=== PATIENT | male | born 1995 | race Caucasian/White ===

== ENCOUNTER 2019-01-09 08:16 | Inpatient (IN) ==
[2019-01-09] MEDS ORDERED: OXYCODONE Oral CONC 10 MG/0.5 ML ORAL.SYG SL PRN (09:24)
[2019-01-09] MEDS ORDERED: Ondansetron 4 MG/2 ML VIAL IVP PRN (09:24)
[2019-01-09] MEDS ORDERED: *HR* Promethazine 25 MG/ML VIAL IVP PRN (09:24)
[2019-01-09 09:50] LABS: Basophils % 0.3 %; Eosinophils # 0.4 K/mcL (0.0-0.6); Eosinophils % 5.1 %; Immature Granulocytes % 0.4 % (0-4); Lymphocytes # 1.4 K/mcL (0.6-4.6); Lymphocytes % 19.8 %; Mean Corpuscular HGB Conc 32.6 g/dL (31.6-35.5); Mean Corpuscular Hemoglobin 27.6 pg (28.0-33.3); Mean Corpuscular Volume 84.6 fL (83.0-100.0); Mean Platelet Volume 10.2 fL (9.4-12.4); Monocytes # 0.6 K/mcL (0.0-1.3); Monocytes % 8.7 %; Neutrophils # 4.5 K/mcL (1.6-8.9); Platelet Count 231 K/mcL (140-400); Red Blood Count 5.08 M/mcL (4.19-5.50); Red Cell Distribution Width 12.8 % (11.5-14.5); Segmented Neutrophils % 65.7 %
[2019-01-09 09:57] LABS: INR 1.1; Prothrombin Time 12.5 Seconds (9.4-12.1)
--- NOTE | 2019-01-09 10:32 | Acute Care Surgery H&P ---
<Jennifer Aldridge L - Last Filed: 01/09/19 10:26> Date of Encounter: 01/09/19 Time of Encounter: 10:27 Assessment and Plan (1) Choledocholithiasis Current Visit: Yes Status: Acute The assessment and plan as outlined above was discussed with the patient and/or family members who expressed understanding and agreement. All questions were answered. Patient recently had a cholecystectomy at [facility] by Dr. Jimenez. Per review of office note he had been having pain for approximately the last month. Upper endoscopy he was found to have a small ulcer. He then presented to [facility] and was noted to have pancreatitis. In MRCP demonstrated distal filling defect in the common bile duct. We will admit him to the hospital for choledocholithiasis and acute pancreatitis. We have consulted gastroenterology for an ERCP on 01/10/2019. See hard chart for complete history and physical. Plan: NPO Labs IVF Supportive care and Discomfort management EPCDs IS Smoking cessation GI consult for ERCP History of Present Illness Chief complaint: Epigastric pain HPI: Mr. Gaming is a 23 year old male Past Med Surg Social Fam HX - Past Surgical History Surgical History: cholecystectomy, tonsilectomy - Social History Smoking Status: Current every day smoker Packs per day: 0.5 Alcohol use: none Drug use: none - Family History Mother History Unknown: Yes Medications and Allergies Allergy/AdvReac Type Severity Reaction Status Date / Time Amoxicillin [From Augmentin] AdvReac Hives Verified 01/09/19 09:09 clavulanic acid AdvReac Hives Verified 01/09/19 09:09 [From Augmentin] Review of Systems All systems PM: The remainder of the systems were reviewed and are negative General Surgery Exam Initial Vital Signs Temp Pulse Resp BP Pulse Ox 97.8 F 61 17 127/76 98 01/09/19 08:57 01/09/19 08:57 01/09/19 08:57 01/09/19 08:57 01/09/19 08:57 Results - Labs 01/09/19 09:38 Abnormal lab results MCH 27.6 pg (28.0-33.3) L 01/09/19 09:38 PT 12.5 Seconds (9.4-12.1) H 01/09/19 09:38 All other labs normal. <Nancy,Jovanny T - Last Filed: 01/09/19 12:06> Date of Encounter: 01/09/19 History of Present Illness HPI: Mr. Gaming is a 23 year old male Review of Systems All systems PM: The remainder of the systems were reviewed and are negative General Surgery Exam Initial Vital Signs Temp Pulse Resp BP Pulse Ox 97.8 F 61 17 127/76 98 01/09/19 08:57 01/09/19 08:57 01/09/19 08:57 01/09/19 08:57 01/09/19 08:57 Results - Labs 01/09/19 09:38 01/09/19 09:38 Abnormal lab results MCH 27.6 pg (28.0-33.3) L 01/09/19 09:38 PT 12.5 Seconds (9.4-12.1) H 01/09/19 09:38 BUN 5 mg/dL (6-20) L 01/09/19 09:38 1.7 mg/dL (0.3-1.0) H 01/09/19 09:38 1.1 mg/dL (0.0-0.2) H 01/09/19 09:38 AST 97 Units/L (13-39) H 01/09/19 09:38 ALT 165 Units/L (7-52) H 01/09/19 09:38 170 Units/L (34-104) H 01/09/19 09:38 6.0 g/dL (6.4-8.9) L 01/09/19 09:38 2.0 g/dL (2.4-3.5) L 01/09/19 09:38 Amylase 603 Units/L (29-103) H 01/09/19 09:38 > 1800 Units/L (11-82) H 01/09/19 09:38 Diabetes panel 01/09/19 Range/Units 09:38 Sodium 142 (136-145) mEq/L Potassium 3.8 (3.5-5.1) mEq/L Chloride 104 (98-107) mEq/L Carbon Dioxide 28 (23-29) mEq/L BUN 5 L (6-20) mg/dL Creatinine 0.87 (0.70-1.30) mg/dL Glucose 92 (70-105) mg/dL Calcium 9.5 (8.6-10.3) mg/dL AST 97 H (13-39) Units/L ALT 165 H (7-52) Units/L Alkaline Phosphatase 170 H (34-104) Units/L Albumin 4.0 (3.5-5.7) g/dL Calcium panel 01/09/19 Range/Units 09:38 Calcium 9.5 (8.6-10.3) mg/dL Phosphorus 3.1 (2.7-4.5) mg/dL Albumin 4.0 (3.5-5.7) g/dL Pituitary panel 01/09/19 Range/Units 09:38 Sodium 142 (136-145) mEq/L Potassium 3.8 (3.5-5.1) mEq/L Chloride 104 (98-107) mEq/L Carbon Dioxide 28 (23-29) mEq/L BUN 5 L (6-20) mg/dL Creatinine 0.87 (0.70-1.30) mg/dL Glucose 92 (70-105) mg/dL Calcium 9.5 (8.6-10.3) mg/dL Adrenal panel 01/09/19 Range/Units 09:38 Sodium 142 (136-145) mEq/L Potassium 3.8 (3.5-5.1) mEq/L Chloride 104 (98-107) mEq/L Carbon Dioxide 28 (23-29) mEq/L BUN 5 L (6-20) mg/dL Creatinine 0.87 (0.70-1.30) mg/dL Glucose 92 (70-105) mg/dL Calcium 9.5 (8.6-10.3) mg/dL Total Bilirubin 1.7 H (0.3-1.0) mg/dL AST 97 H (13-39) Units/L ALT 165 H (7-52) Units/L Alkaline Phosphatase 170 H (34-104) Units/L Albumin 4.0 (3.5-5.7) g/dL All other labs normal. - Attending Attestation The patient was seen and evaluated earlier in the day in the outpatient clinic. My outpatient clinic note is now part of the inpatient documented. We will plan gastroenterology consultation and ERCP tomorrow Jovanny Cruz MD FACS
[2019-01-09] MEDS: 0.9 % Sodium Chloride 1,000 ML IVC SCH ×2 (10:44→20:41)
[2019-01-09] MEDS: Pantoprazole 40 MG VIAL IVP SCH (10:44)
[2019-01-09 11:56] LABS: Alanine Aminotransferase 165 Units/L (7-52); Alkaline Phosphatase 170 Units/L (34-104); Amylase 603 Units/L (29-103); Aspartate Amino Transferase 97 Units/L (13-39); BUN/Creatinine Ratio 6 (6-26); Bilirubin,Direct 1.1 mg/dL (0.0-0.2); Bilirubin,Indirect 0.6 mg/dL (0.0-1.2); Bilirubin,Total 1.7 mg/dL (0.3-1.0); Blood Urea Nitrogen 5 mg/dL (6-20); Calcium 9.5 mg/dL (8.6-10.3); Carbon Dioxide 28 mEq/L (23-29); Chloride 104 mEq/L (98-107); Glucose 92 mg/dL (70-105); Lipase > 1800 Units/L (11-82); Magnesium 1.7 mg/dL (1.6-2.6); Osmolality,Calculated 291 (280-300); Phosphorous 3.1 mg/dL (2.7-4.5); Potassium 3.8 mEq/L (3.5-5.1); Sodium 142 mEq/L (136-145); eGFR For Non-African Americans > 60 (> 60)
[2019-01-09] MEDS: Ketorolac 15 MG/ML VIAL IVP PRN ×2 (12:31→21:26)
--- NOTE | 2019-01-09 16:16 | Event Note ---
Date of Encounter: 01/09/19 Time of Encounter: 16:15 CT abd/pelvis and MRI MRCP are in PACs and available to view. Reports to follow per fax.
[2019-01-09] MEDS: *HR* Heparin 5,000 UNIT/ML VIAL SQ SCH (19:20)
[2019-01-10] MEDS: *HR* Heparin 5,000 UNIT/ML VIAL SQ SCH ×2 (02:25→17:01)
[2019-01-10] MEDS: 0.9 % Sodium Chloride 1,000 ML IVC SCH (04:37)
[2019-01-10] MEDS: Ketorolac 15 MG/ML VIAL IVP PRN (04:41)
[2019-01-10 05:28] LABS: Basophils % 0.3 %; Eosinophils # 0.3 K/mcL (0.0-0.6); Eosinophils % 4.6 %; Hematocrit 43.2 % (37.5-50.1); Hemoglobin 14.2 g/dL (12.9-16.9); Immature Granulocytes % 0.1 % (0-4); Lymphocytes # 1.8 K/mcL (0.6-4.6); Lymphocytes % 24.5 %; Mean Corpuscular HGB Conc 32.9 g/dL (31.6-35.5); Mean Corpuscular Hemoglobin 27.5 pg (28.0-33.3); Mean Corpuscular Volume 83.7 fL (83.0-100.0); Monocytes # 0.6 K/mcL (0.0-1.3); Monocytes % 8.3 %; Neutrophils # 4.5 K/mcL (1.6-8.9); Platelet Count 257 K/mcL (140-400); Red Blood Count 5.16 M/mcL (4.19-5.50); Red Cell Distribution Width 13.1 % (11.5-14.5); Segmented Neutrophils % 62.2 %
[2019-01-10 05:51] LABS: Alanine Aminotransferase 164 Units/L (7-52); Albumin 3.9 g/dL (3.5-5.7); Albumin/Globulin Ratio 1.9 (1.1-2.2); Alkaline Phosphatase 173 Units/L (34-104); Amylase 379 Units/L (29-103); Aspartate Amino Transferase 69 Units/L (13-39); BUN/Creatinine Ratio 11 (6-26); Bilirubin,Direct 0.2 mg/dL (0.0-0.2); Bilirubin,Indirect 0.7 mg/dL (0.0-1.2); Bilirubin,Total 0.9 mg/dL (0.3-1.0); Blood Urea Nitrogen 8 mg/dL (6-20); Calcium 9.3 mg/dL (8.6-10.3); Carbon Dioxide 24 mEq/L (23-29); Chloride 105 mEq/L (98-107); Globulin 2.1 g/dL (2.4-3.5); Glucose 80 mg/dL (70-105); Osmolality,Calculated 287 (280-300); Potassium 3.5 mEq/L (3.5-5.1); Sodium 140 mEq/L (136-145); eGFR For Non-African Americans > 60 (> 60)
[2019-01-10 06:04] LABS: Lipase 728 Units/L (11-82)
[2019-01-10] MEDS: Pantoprazole 40 MG VIAL IVP SCH (07:45)
--- NOTE | 2019-01-10 08:44 | AcuteCareSurgery Progress Note ---
Date of Encounter: 01/10/19 Time of Encounter: 08:42 - Assessment and Plan (1) Choledocholithiasis Current Visit: Yes Status: Acute 23M s/p cholecystectomy > 2 years ago now with concern for choledocholithiasis; no evidence for cholangitis, non peritoneal; evaluated by GI for ERCP NPO IVF SQH no need for abx activity as tolerated plan for ERCP today per GI likely to initiate diet after procedure Subjective Patient reports: no new complaints, feels better, still having pain, pain is less, afebrile Objective Vital Signs - Last 8 Hours Temp Pulse Resp BP Pulse Ox 01/10/19 07:52 97.8 F 68 18 136/79 97 01/10/19 04:19 98 F 74 18 118/71 96 Intake and Output 01/09/19 01/10/19 01/10/19 23:59 07:59 15:59 Intake Total 1000 / 1000 1000 / 1000 0 / 1000 Output Total 0 / 0 Balance 1000 / 1000 1000 / 1000 0 / 1000 Intake: IV Fluids 1000 / 1000 1000 / 1000 0.9 % Sodium Chloride 1,000 ML 1000 / 1000 1000 / 1000 @ 125 mls/hr IVC .Q8H [facility] Rx#: [id number] Oral 0 / 0 0 / 0 0 / 0 Output: Urine 0 / 0 Other: Meal NPO NPO Percent of Meal Consumed 0% 0% # Voids 1 Weight 118.6 kg - General physical appearance no distress - Eyes other (no scleral icterus) - Respiratory normal expansion, normal respiratory effort - Cardiovascular Cardiovascular exam: Present: RRR - Abdomen Abdomen: Present: soft, tender (non peritoneal) - Neurologic CN 2-12 grossly intact - Psychiatric oriented to time, oriented to person, oriented to place - Labs 01/10/19 04:07 01/10/19 04:07 Diabetes panel 01/09/19 01/10/19 Range/Units 09:38 04:07 Sodium 142 140 (136-145) mEq/L Potassium 3.8 3.5 (3.5-5.1) mEq/L Chloride 104 105 (98-107) mEq/L Carbon Dioxide 28 24 (23-29) mEq/L BUN 5 L 8 (6-20) mg/dL Creatinine 0.87 0.73 (0.70-1.30) mg/dL Glucose 92 80 (70-105) mg/dL Calcium 9.5 9.3 (8.6-10.3) mg/dL AST 97 H 69 H (13-39) Units/L ALT 165 H 164 H (7-52) Units/L Alkaline Phosphatase 170 H 173 H (34-104) Units/L Albumin 4.0 3.9 (3.5-5.7) g/dL Calcium panel 01/09/19 01/10/19 Range/Units 09:38 04:07 Calcium 9.5 9.3 (8.6-10.3) mg/dL Phosphorus 3.1 (2.7-4.5) mg/dL Albumin 4.0 3.9 (3.5-5.7) g/dL Pituitary panel 01/09/19 01/10/19 Range/Units 09:38 04:07 Sodium 142 140 (136-145) mEq/L Potassium 3.8 3.5 (3.5-5.1) mEq/L Chloride 104 105 (98-107) mEq/L Carbon Dioxide 28 24 (23-29) mEq/L BUN 5 L 8 (6-20) mg/dL Creatinine 0.87 0.73 (0.70-1.30) mg/dL Glucose 92 80 (70-105) mg/dL Calcium 9.5 9.3 (8.6-10.3) mg/dL Adrenal panel 01/09/19 01/10/19 Range/Units 09:38 04:07 Sodium 142 140 (136-145) mEq/L Potassium 3.8 3.5 (3.5-5.1) mEq/L Chloride 104 105 (98-107) mEq/L Carbon Dioxide 28 24 (23-29) mEq/L BUN 5 L 8 (6-20) mg/dL Creatinine 0.87 0.73 (0.70-1.30) mg/dL Glucose 92 80 (70-105) mg/dL Calcium 9.5 9.3 (8.6-10.3) mg/dL Total Bilirubin 1.7 H 0.9 (0.3-1.0) mg/dL AST 97 H 69 H (13-39) Units/L ALT 165 H 164 H (7-52) Units/L Alkaline Phosphatase 170 H 173 H (34-104) Units/L Albumin 4.0 3.9 (3.5-5.7) g/dL - Imaging CT scan - abdomen: report reviewed, image reviewed CT Scan - head: report reviewed, image reviewed MRI - chest: report reviewed, image reviewed Consult Discharge Plan - Plan Referrals: Jaelyn Zuniga MD [Primary Care Provider] -
--- NOTE | 2019-01-10 09:56 | Gastroenterology Consult Note ---
<Roberta Schreiber - Last Filed: 01/10/19 09:51> Date of Encounter: 01/10/19 Time of Encounter: 09:15 - Assessment and plan (1) Choledocholithiasis Current Visit: Yes Status: Acute Assessment and plan: Pt is status post cholecystectomy in 2010. He has had epigastric pain and nausea for the past month. Admission labs showed acute pancreatitis, MRCP shows a small filling defect. Will proceed with ERCP today, risks and benefits explained and pt and family verbalie understanding and are in agreement with treatment plan. - Time Spent With Patient Total time spent is greater than 50% in coordination of care (as documented) at patient's floor/unit and/or counseling patient: GI History of Present Illness - Data of Consult Patient: new to practice Consult date: 01/10/19 Requesting Physician: Jovanny Cruz MD - Consult Narrative Reason for consult: choledocholithiasis History of present illness: Mr Gaming is a 23 year old male who presented with pancreatitis. He reports having a cholecystectomy in 2010. He has been complaining of epigastric pain and nausea for the past month. He had an EGD at [facility] by Dr. Jimenez which showed a small ulcer. He reports no relief with PPI. He presented to [facility] ER and was noted to have pancreatitis. MRCP demonstrated distal filling defect in the common bile duct. Admission labs showed a total bilirubin 1.7, ast, 165, and alk phos 170, amylase 603 and lipase >1800. egd: 12/29 small ulcer at [facility] NSAIDS: denies anticoagulants: denies Past Med Surg Social Fam HX - Past Surgical History Surgical History: cholecystectomy, tonsilectomy - Social History Smoking Status: Current every day smoker Packs per day: 0.5 Alcohol use: none Drug use: none - Family History Mother History Unknown: Yes Review of Systems: GI: as per ZUNI GENERAL: denies fever or chills EYES: denies yellow discoloration ENT: denies pain with swallowing or difficulty swallowing CARDIO: denies chest pain, palpitations RESP: No Shortness of breath with exertion : denies change in color of urine NEURO: denies any weakness HEME: Denies any bruising MS: denies joint pain, joint swelling or back pain. DERM: denies rash or itching PSYCH: Denies history of anxiety or depression - Constitutional Vitals: Temp Pulse Resp BP Pulse Ox 97.8 F 68 18 136/79 97 01/10/19 07:52 01/10/19 07:52 01/10/19 07:52 01/10/19 07:52 01/10/19 07:52 Exam: CONSTITUTIONAL:alert, no acute distress.HEAD:normocephalic.EYES:no jaundice.NECK:no obvious swelling.HEART:regular rate and rhythm, no murmurs.LUNGS:bilateral good air entry.ABDOMEN:non distended, soft, tender epigastric area, no masses palpable, no organomegaly.RECTAL EXAM:Deferred.EXTREMITIES:no clubbing, cyanosis or edema.SKIN:no stigmata of chronic liver disease, tattoos noted.NEUROLOGIC:no obvious focal defect. Results - Labs CBC & Chem 7: 01/10/19 04:07 01/10/19 04:07 Labs: Last Result 01/10/19 04:07 Calcium 9.3 Entire Visit 01/10/19 01/10/19 04:07 04:07 Hgb 14.2 Hct 43.2 Total Bilirubin 0.9 AST 69 H ALT 164 H Amylase 379 H Lipase 728 H - ABG ABG results: PT/INR, D-dimer PT 12.5 Seconds (9.4-12.1) H 01/09/19 09:38 Consult Discharge Plan - Plan Referrals: Jaelyn Zuniga MD [Primary Care Provider] - <BrandenalexiaHan - Last Filed: 01/10/19 14:50> Date of Encounter: 01/10/19 Time of Encounter: 13:00 - Time Spent With Patient Total time spent is greater than 50% in coordination of care (as documented) at patient's floor/unit and/or counseling patient: GI History of Present Illness - Data of Consult Requesting Physician: Jovanny Cruz MD - Consult Narrative History of present illness: Mr. Gaming is a 23 year old male - Constitutional Vitals: Temp Pulse Resp BP Pulse Ox 98.3 F 67 18 150/85 100 01/10/19 13:45 01/10/19 13:45 01/10/19 13:45 01/10/19 13:45 01/10/19 13:45 Results - Labs CBC & Chem 7: 01/10/19 04:07 05/01/19 04:07 Labs: Last Result 01/10/19 04:07 Calcium 9.3 Entire Visit 01/10/19 01/10/19 04:07 04:07 Hgb 14.2 Hct 43.2 Total Bilirubin 0.9 AST 69 H ALT 164 H Amylase 379 H Lipase 728 H - ABG ABG results: PT/INR, D-dimer PT 12.5 Seconds (9.4-12.1) H 01/09/19 09:38 - Attending Attestation I have personally performed a face to face evaluation on this patient. I have reviewed and agree with the care plan. History and Exam by me shows: Patient seen denies any active complaints on examination alert and awake not in distress. Assessment : patient with the status post recent GB surgery now with the gallstone pancreatitis with MRCP positive for CBD stone. LFTs are better today but patient most probably has a stone that has moved up in the bile duct other possibility is that have passed a stone.. Recommendation: ERCP with sweeping of the duct.
--- NOTE | 2019-01-10 12:59 | Anesthesia Evaluation PreOp ---
Date of Encounter: 01/10/19 Time of Encounter: 12:57 - Past History Planned Operation: ERCP Cardiac History: Denies any Significant Hx Pulmonary History: Smoker [employer] History: Denies Any Significant HX Other Medical History: Hepatic (OBSTRUCTIVE JAUNDICE, POST LAP CHOLECYSTECTOMY 2010) Anesthesia History: No Prior Anesthetic Complications, Past Anesthesia Alcohol Use: none Drug use: none Medications and Allergies No Known Home Drugs 01/09/19 [History] Allergy/AdvReac Type Severity Reaction Status Date / Time Amoxicillin [From Augmentin] AdvReac Hives Verified 01/09/19 13:55 clavulanic acid AdvReac Hives Verified 01/09/19 13:55 [From Augmentin] - Meds/Allergy Pre-op Review Medications Reviewed: Yes Allergies Reviewed: Yes Anesthesia Results - Labs 01/10/19 04:07 01/10/19 04:07 Laboratory Tests 01/09/19 01/10/19 09:38 04:07 Total Bilirubin 1.7 H 0.9 Direct Bilirubin 1.1 H 0.2 AST 69 H ALT 164 H Alkaline Phosphatase 173 H Serum Total Protein 6.0 L Albumin 3.9 Amylase 379 H Lipase 728 H Anesthesia Exam Vital Signs/O2 Sat, Most Current Temp Pulse Resp BP Pulse Ox 98.3 F 60 17 117/69 99 01/10/19 11:23 01/10/19 11:23 01/10/19 11:23 01/10/19 11:23 01/10/19 11:23 - HEENT Mallampati: I Teeth: Normal - Cardiac Rhythm: Regular - Pulmonary Breath Sounds: bilateral Clear Anesthesia Assess/Plan ASA Score: 2 Anesthetic Plan: General Monitoring Plan: Standard Monitors Recovery Plan: PACU
[2019-01-10] MEDS ORDERED: *HR* FentaNYL (PF) 100 MCG/2 ML VIAL ONE (13:20)
[2019-01-10] MEDS ORDERED: *HR* Propofol 200 MG/20 ML VIAL IVP ONE ×2 (13:20→13:44)
[2019-01-10] MEDS ORDERED: *HR* Midazolam HCl 2 MG/2 ML VIAL ONE (13:20)
[2019-01-10] MEDS ORDERED: Lidocaine -MPF 2% 2 ML VIAL ONE (13:21)
[2019-01-10] MEDS ORDERED: Ondansetron 4 MG/2 ML VIAL ONE (13:21)
[2019-01-10] MEDS ORDERED: *HR* Succinylcholine 200 MG/10 ML VIAL IVP ONE (13:21)
[2019-01-10] MEDS ORDERED: Dexamethasone 4 MG/ML VIAL ONE (13:21)
[2019-01-10] MEDS ORDERED: Lidocaine -MPF 4% 5 ML AMPUL ONE (13:22)
[2019-01-10] MEDS ORDERED: Ringers Solution, Lactated 1,000 ML IVC SCH (14:00)
[2019-01-10] MEDS ORDERED: Indomethacin 50 MG SUPP.RECT RC ONE (14:50)
[2019-01-10] MEDS ORDERED: *HR* Promethazine 25 MG/ML VIAL IVP PRN (15:01)
[2019-01-10] MEDS ORDERED: *HR* HYDROmorphone (PF) 1 MG/ML SYRINGE IVP PRN (15:01)
[2019-01-10] MEDS ORDERED: Ketorolac 30 MG/ML VIAL IVP ONE (15:01)
[2019-01-10] MEDS ORDERED: Ondansetron 4 MG/2 ML VIAL IVP ONE (15:01)
--- NOTE | 2019-01-10 15:38 | Event Note ---
Date of Encounter: 01/10/19 Time of Encounter: 15:00 ERCP steonE: Sphincterotomy done, sludge removed. PD stent palced. Rec: Can be d/c if felling OK. F/U GI 2-3 weeks
--- NOTE | 2019-01-10 16:43 | Anesthesia Evaluation Post Op ---
Date of Encounter: 01/10/19 Time of Encounter: 16:00 - Vital Signs Vital Signs: Vital Signs Temp Pulse Resp BP Pulse Ox 01/10/19 16:20 98.5 F 60 13 144/85 97 01/10/19 16:07 97.7 F 58 13 138/84 99 01/10/19 15:57 61 16 138/92 98 01/10/19 15:47 54 13 133/75 96 01/10/19 15:37 97.9 F 80 18 134/79 97 01/10/19 13:45 98.3 F 67 18 150/85 100 01/10/19 11:23 98.3 F 60 17 117/69 99 01/10/19 07:52 97.8 F 68 18 136/79 97 01/10/19 04:19 98 F 74 18 118/71 96 01/09/19 23:44 97.9 F 71 18 120/60 98 01/09/19 20:06 98.5 F 74 17 113/62 98 Intake and Output 01/10/19 01/10/19 01/10/19 07:59 15:59 23:59 Intake Total 1000 / 1000 0 / 1000 Balance 1000 / 1000 0 / 1000 Intake: IV Fluids 1000 / 1000 0.9 % Sodium Chloride 1,000 ML 1000 / 1000 @ 125 mls/hr IVC .Q8H [facility] Rx#: [id number] Oral 0 / 0 0 / 0 Other: Meal NPO Percent of Meal Consumed 0% # Voids 1 - Lungs Lungs: Clear Ascult./Percussion - Airway Airway: Non-obstructed - Cardiovascular Regular Rate - Mental Status Mental Status: Alert & Oriented, Answers Appropriately - Pain Pain Scale: 0 Pain Scale used: Numeric (1 - 10) - Nausea Vomiting Nausea Vomiting: Not Present - Hydration Hydration: Tolerates oral liquids - Discharge PostOp Status: Transfer Patient to floor Anes Supervising Prov Stmt: Pt seen/evaluated, VSS and pt has met criteria for discharge to floor. - MD Rufino
[2019-01-10 17:35] VITALS: BP 149/76
--- NOTE | 2019-01-10 18:02 | Discharge Summary ---
Date of Encounter: 01/10/19 Time of Encounter: 18:00 - Discharge Diagnosis (1) Choledocholithiasis Priority: Primary Status: Acute Comments: 23M s/p cholecystectomy > 2 years ago now with choledocholithiasis now s/p ERCP with sphincterotomy and stent placement; tolerating diet pain controlled meets discharge criteria General Surgery Exam Initial Vital Signs Temp Pulse Resp BP Pulse Ox 97.8 F 61 17 127/76 98 01/09/19 08:57 01/09/19 08:57 01/09/19 08:57 01/09/19 08:57 01/09/19 08:57 - General physical appearance no distress - Eyes other (no scleral icterus), normal ocular movement - ENT normocephalic - Neck trachea midline, no lymphadectomy - Respiratory normal expansion, normal respiratory effort - Cardiovascular Cardiovascular exam: Present: RRR - Abdomen Abdomen general surgery: Present: soft - Integumentary Integumentary general surgery: Present: warm and dry - Neurologic Present: CN 2-12 grossly intact - Musculoskeletal Present: normal posture - Psychiatric Psychiatric general surgery: Present: A&Ox3 - Hospital Course Hospital course: Mr. Gaming is a 23 year old male - Time Spent with Patient Total time spent providing and/or coordinating discharge services: Greater than 30 minutes - Discharge Medications Prescriptions: No Action No Known Home Drugs 1 each .ROUTE AD each Home Medications: No Known Home Drugs 01/09/19 [History] Allergies/Adverse Reactions: Allergy/AdvReac Type Severity Reaction Status Date / Time Amoxicillin [From Augmentin] AdvReac Hives Verified 01/09/19 13:55 clavulanic acid AdvReac Hives Verified 01/09/19 13:55 [From Augmentin] Date of admission: 01/09/19 16:55 Primary care physician: Jaelyn Zuniga MD Consults: 01/09/19 09:28 Consult to Gastroenterology [CONS] Routine Consulting Provider: [facility] [place] Reason for Consult: Gallstone pac; CBD dilation and stone, ?ERCP 01/10 Spoke with Edwin Schreiber APRN Time Notified: 08:05 Call Completed: Yes Discharging clinician: Dusty Marie Anticipated date of discharge: 01/10/19 Labs on day of discharge: Labs from last 24 hours 01/10/19 01/10/19 04:07 04:07 WBC 7.2 RBC 5.16 Hgb 14.2 Hct 43.2 MCV 83.7 MCH 27.5 L MCHC 32.9 RDW 13.1 Plt Count 257 MPV 11.0 Immature Gran % 0.1 Seg Neutrophils % 62.2 Lymphocytes % 24.5 Monocytes % 8.3 Eosinophils % 4.6 Basophils % 0.3 Neutrophils # 4.5 Lymphocytes # 1.8 Monocytes # 0.6 Eosinophils # 0.3 Basophils # 0.0 Sodium 140 Potassium 3.5 Chloride 105 Carbon Dioxide 24 BUN 8 Creatinine 0.73 Est GFR ( Amer) > 60 Est GFR (Non-Af Amer) > 60 BUN/Creatinine Ratio 11 Glucose 80 Calculated Osmolality 287 Calcium 9.3 Total Bilirubin 0.9 Direct Bilirubin 0.2 Indirect Bilirubin 0.7 AST 69 H ALT 164 H Alkaline Phosphatase 173 H Serum Total Protein 6.0 L Albumin 3.9 Globulin 2.1 L Albumin/Globulin Ratio 1.9 Amylase 379 H Lipase 728 H - Impressions ITS Impressions Cath/Invasive Procedure 01/10/19 00:00 IMPRESSION: Intraoperative fluoroscopy provided. Please refer to the procedure report for further details. D/ / Albino Martins MD / Albino Martins MD Interpreting Provider: Albino Martins MD - Patient Status Disposition: Home, Self-Care Condition: Good Overall status at discharge: patient is back to baseline - Discharge Instructions Follow Up With: Jaelyn Zuniga MD [Primary Care Provider] - Han Bridges MD [Partnered Physician] - 01/24/19 (2-3 weeks) - Diet and Activity Activity: increase activity as tolerated Diet: advance to your usual diet
== END 2019-01-10 18:23 | disposition home or self-care (01) | DRG 444 ==
LOC: 2ANU
PROVIDERS: ADMIT Surgery; ATTEND Surgery

== ENCOUNTER 2020-04-16 19:51 | Observation (INO) ==
[2020-04-16 20:53] LABS: Bilirubin,Urine Small (Negative); Blood,Urine Negative (Negative); Clarity,Urine Clear (Clear); Color,Urine Yellow (Yellow); Glucose,Urine (UA) Normal (Normal); Ketones,Urine Negative (Negative); Leukocyte Esterase,Urine Negative (Negative); Nitrite,Urine Negative (Negative); Protein,Urine Trace mg/dL (Neg-Trace); Specific Gravity,Urine > 1.030 (1.010-1.025)
[2020-04-16] MEDS ORDERED: Ketorolac 15 MG/ML VIAL IVP ONE (20:55)
[2020-04-16 20:59] LABS: Basophils # 0.1 K/mcL (0.0-0.2); Basophils % 0.7 %; Eosinophils # 0.1 K/mcL (0.0-0.6); Eosinophils % 1.9 %; Hemoglobin 14.5 g/dL (12.9-16.9); Immature Granulocytes % 0.1 % (0-4); Lymphocytes % 27.1 %; Mean Corpuscular HGB Conc 32.2 g/dL (31.6-35.5); Mean Corpuscular Volume 83.6 fL (83.0-100.0); Monocytes # 0.7 K/mcL (0.0-1.3); Monocytes % 9.6 %; Neutrophils # 4.4 K/mcL (1.6-8.9); Nucleated Red Blood Cells 0.3 /100 WBC (0); Platelet Count 245 K/mcL (140-400); Red Blood Count 5.38 M/mcL (4.19-5.50); Red Cell Distribution Width 13.1 % (11.5-14.5); Segmented Neutrophils % 60.6 %; White Blood Count 7.2 K/mcL (4.3-11.1)
[2020-04-16 21:18] LABS: Alanine Aminotransferase 345 Units/L (7-52); Albumin 4.2 g/dL (3.5-5.7); Albumin/Globulin Ratio 2.1 (1.1-2.2); Alkaline Phosphatase 122 Units/L (34-104); Aspartate Amino Transferase 240 Units/L (13-39); BUN/Creatinine Ratio 9 (6-26); Bilirubin,Direct 0.9 mg/dL (0.0-0.2); Bilirubin,Indirect 0.7 mg/dL (0.0-1.0); Bilirubin,Total 1.6 mg/dL (0.3-1.0); Blood Urea Nitrogen 10 mg/dL (6-20); Calcium 9.1 mg/dL (8.6-10.3); Carbon Dioxide 29 mEq/L (23-29); Chloride 104 mEq/L (98-107); Glucose 68 mg/dL (70-105); Lipase 69 Units/L (11-82); Osmolality,Calculated 285 (280-300); Potassium 3.8 mEq/L (3.5-5.1); Sodium 139 mEq/L (136-145); Total Protein 6.2 g/dL (6.4-8.9); eGFR For African Americans > 60 (> 60); eGFR For Non-African Americans > 60 (> 60)
[2020-04-16] MEDS ORDERED: Naloxone 0.4 MG/ML INJ IVP PRN (22:18)
[2020-04-16] MEDS ORDERED: Ondansetron 4 MG/2 ML VIAL IVP PRN (22:18)
[2020-04-16] MEDS: 0.9 % Sodium Chloride 1,000 ML IVC SCH (23:17)
[2020-04-17 01:54] LABS: Basophils % 0.5 %; Eosinophils # 0.1 K/mcL (0.0-0.6); Eosinophils % 2.3 %; Hemoglobin 14.3 g/dL (12.9-16.9); Immature Granulocytes % 0.4 % (0-4); Lymphocytes # 2.1 K/mcL (0.6-4.6); Lymphocytes % 36.6 %; Mean Corpuscular HGB Conc 31.8 g/dL (31.6-35.5); Mean Corpuscular Hemoglobin 26.4 pg (28.0-33.3); Mean Corpuscular Volume 83.2 fL (83.0-100.0); Mean Platelet Volume 10.6 fL (9.4-12.4); Monocytes # 0.5 K/mcL (0.0-1.3); Monocytes % 8.1 %; Platelet Count 253 K/mcL (140-400); Red Blood Count 5.41 M/mcL (4.19-5.50); Red Cell Distribution Width 13.2 % (11.5-14.5); Segmented Neutrophils % 52.1 %; White Blood Count 5.7 K/mcL (4.3-11.1)
[2020-04-17 02:01] LABS: INR 1.1; Prothrombin Time 12.7 Seconds (9.4-12.1)
[2020-04-17 02:16] LABS: Alanine Aminotransferase 391 Units/L (7-52); Albumin 4.1 g/dL (3.5-5.7); Albumin/Globulin Ratio 2.1 (1.1-2.2); Alkaline Phosphatase 139 Units/L (34-104); Aspartate Amino Transferase 271 Units/L (13-39); BUN/Creatinine Ratio 10 (6-26); Blood Urea Nitrogen 10 mg/dL (6-20); Calcium 8.9 mg/dL (8.6-10.3); Carbon Dioxide 25 mEq/L (23-29); Chloride 105 mEq/L (98-107); Chol/HDL Ratio 4.2 (0-4.9); Cholesterol 129 mg/dL (< 200); Glucose 91 mg/dL (70-105); HDL Cholesterol 31 mg/dL (40-59); LDL Cholesterol,Calculated 67 mg/dL (< 100); Magnesium 2.1 mg/dL (1.6-2.6); Osmolality,Calculated 289 (280-300); Phosphorous 3.5 mg/dL (2.7-4.5); Potassium 3.5 mEq/L (3.5-5.1); Sodium 140 mEq/L (136-145); Total Protein 6.1 g/dL (6.4-8.9); Triglycerides 155 mg/dL (< 150); eGFR For African Americans > 60 (> 60); eGFR For Non-African Americans > 60 (> 60)
[2020-04-17] MEDS: 0.9 % Sodium Chloride 1,000 ML IVC SCH (07:57)
[2020-04-17] MEDS ORDERED: *HR* Propofol 200 MG/20 ML VIAL IVP ONE ×2 (11:26)
[2020-04-17] MEDS ORDERED: Lidocaine -MPF 2% 2 ML VIAL ONE ×2 (11:28→11:35)
[2020-04-17] MEDS ORDERED: *HR* Succinylcholine 200 MG/10 ML VIAL IVP ONE (11:29)
[2020-04-17] MEDS ORDERED: *HR* Midazolam HCl 2 MG/2 ML VIAL ONE (11:34)
[2020-04-17] MEDS ORDERED: *HR* FentaNYL (PF) 100 MCG/2 ML VIAL ONE (11:34)
[2020-04-17] MEDS ORDERED: Ondansetron 4 MG/2 ML VIAL ONE (11:35)
[2020-04-17] MEDS ORDERED: Dexamethasone 4 MG/ML VIAL ONE (11:35)
[2020-04-17] MEDS ORDERED: *HR* OxyCODONE Immed Rel 5 MG TABLET PO PRN (11:39)
[2020-04-17] MEDS ORDERED: *HR* Promethazine 25 MG/ML VIAL IVP PRN (11:39)
[2020-04-17] MEDS ORDERED: Ringers Solution, Lactated 1,000 ML IVC SCH (11:45)
[2020-04-17 15:59] VITALS: BP 108/72
== END 2020-04-17 16:20 | disposition home or self-care (01) ==
LOC: 3ANU 19:51 → EMEROOARM 19:51 → SUATTDRO 22:46 → 3ANU 23:38
PROVIDERS: ADMIT Family Medicine; ATTEND Internal Medicine

== ENCOUNTER 2020-11-23 00:53 | Observation (INO) ==
[2020-11-23] MEDS ORDERED: *HR* OxyCODONE/APAP 5/325 TABLET PO ONE (01:32)
[2020-11-23 03:11] LABS: Basophils # 0.1 K/mcL (0.0-0.2); Basophils % 0.4 %; Eosinophils # 0.2 K/mcL (0.0-0.6); Eosinophils % 1.3 %; Hematocrit 38.1 % (37.5-50.1); Immature Granulocytes % 0.5 % (0-4); Lymphocytes # 2.2 K/mcL (0.6-4.6); Lymphocytes % 18.9 %; Mean Corpuscular HGB Conc 31.5 g/dL (31.6-35.5); Mean Corpuscular Hemoglobin 25.6 pg (28.0-33.3); Mean Corpuscular Volume 81.4 fL (83.0-100.0); Mean Platelet Volume 9.3 fL (9.4-12.4); Monocytes % 8.5 %; Neutrophils # 8.1 K/mcL (1.6-8.9); Platelet Count 424 K/mcL (140-400); Red Blood Count 4.68 M/mcL (4.19-5.50); Red Cell Distribution Width 13.7 % (11.5-14.5); Segmented Neutrophils % 70.4 %; White Blood Count 11.5 K/mcL (4.3-11.1)
[2020-11-23 04:02] LABS: BUN/Creatinine Ratio 12 (6-26); Blood Urea Nitrogen 10 mg/dL (6-20); C-Reactive Protein 38 mg/L (Less than 10); Calcium 9.3 mg/dL (8.6-10.3); Carbon Dioxide 28 mEq/L (23-29); Chloride 102 mEq/L (98-107); Glucose 94 mg/dL (70-105); Osmolality,Calculated 283 (280-300); Sodium 137 mEq/L (136-145); eGFR For African Americans > 60 (> 60); eGFR For Non-African Americans > 60 (> 60)
[2020-11-23] MEDS ORDERED: *HR* FentaNYL (PF) 100 MCG/2 ML VIAL IVP ONE (04:49)
[2020-11-23] MEDS ORDERED: methylPREDNISolone 125 MG/2 ML VIAL IVP ONE (04:49)
[2020-11-23] MEDS ORDERED: Ondansetron 4 MG/2 ML VIAL IVP PRN (05:10)
[2020-11-23] MEDS ORDERED: Acetaminophen 325 MG TABLET PO PRN (05:10)
[2020-11-23] MEDS ORDERED: Naloxone 0.4 MG/ML INJ IVP PRN (05:10)
[2020-11-23] MEDS ORDERED: 0.9 % Sodium Chloride 1,000 ML IVC SCH (05:15)
[2020-11-23] MEDS ORDERED: *HR* OxyCODONE Immed Rel 5 MG TABLET PO PRN ×2 (07:42→10:19)
[2020-11-23] MEDS ORDERED: Ketorolac 30 MG/ML VIAL IVP PRN ×2 (07:43→10:19)
[2020-11-23] MEDS ORDERED: *HR* Enoxaparin 40 MG/0.4 ML SYRINGE SQ SCH (09:00)
[2020-11-23] MEDS ORDERED: *HR* HYDROmorphone (PF) 1 MG/ML SYRINGE IVP PRN (10:19)
[2020-11-23 10:56] VITALS: BP 111/65
[2020-11-23] MEDS ORDERED: Ketorolac 30 MG/ML VIAL IVP SCH (11:00)
[2020-11-24] MEDS ORDERED: predniSONE 20 MG TABLET PO SCH (09:00)
== END 2020-11-23 14:44 | disposition home or self-care (01) ==
LOC: EMEROOARM 00:53 → 3NENU 00:53 → SUATTDRO 05:15 → 3NENU 05:54
PROVIDERS: ADMIT Internal Medicine; ATTEND Internal Medicine